=== PATIENT | male | born 1985 | race Two or more races ===

== ENCOUNTER 2018-01-08 07:31 | Emergency (ER) | payer SELFPAY ==
[~2018-01-08] VITALS: Ht 188 cm; Wt 97.5 kg
[2018-01-08 07:43] VITALS: BP 149/92
[2018-01-08] MEDS ORDERED: IBUPROFEN 800 MG TAB PO ONE (08:15)
[2018-01-08] MEDS ORDERED: TETANUS-DIPTH-ACEL PERTUSSIS 0.5ML SYRG IM ONE (08:30)
== END 2018-01-08 08:40 | disposition home or self-care (01) ==
LOC: ER 07:39
DX: S61.531A Puncture wound without foreign body of right wrist, initial encounter (principal); S61.431A Puncture wound without foreign body of right hand, initial encounter; W54.0XXA Bitten by dog, initial encounter; Y93.89 Activity, other specified; Y99.8 Other external cause status; Y92.9 Unspecified place or not applicable
CPT/HCPCS: 90471; 90715